=== PATIENT | male | born 1960 | race Caucasian/White ===

== ENCOUNTER 2024-10-29 15:10 | Outpatient (AMB) | payer SELFPAY ==
--- OUTSIDE RECORDS SUMMARY | 2024-10-29 20:34 | XMS_ITS | Clinical Summary ---
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 ancestry, with an estimated carrier frequency of 10%. HH is caused by pathogenic variants in the HFE gene. Most individuals with HH (60-90%) are homozygous for the C282Y pathogenic variant. A smaller percentage of affected individuals are either compound heterozygous for the C282Y and H63D pathogenic variants (3%-8%), or homozygous for the H63D pathogenic variant (approximately 1%). METHODOLOGY: This assay detects two pathogenic variants in the HFE gene, C282Y (NM 910383.2: c.845G>A, p.Qdm554Byg) and H63D (NM 586590.2: c.187C>G, p.Znh61Mke), that are commonly associated with HH. These variants are detected by multiplex-polymerase chain reaction (PCR) amplification, followed by restriction enzyme digestion and capillary electrophoresis. LIMITATIONS: This assay does not detect other pathogenic variants in the HFE gene that may be associated with HH. Although rare, false positive or false negative results may occur. All results should be interpreted in the context of clinical findings, relevant history, and other laboratory data. Health care providers, please contact your local [facility] genetic counselor or call [phone] ( ) for assistance with the interpretation of these results. This test was developed and its analytical performance characteristics have been determined by [facility]. It has not been cleared or approved by FDA. This assay has been validated pursuant to the CLIA regulations and is used for clinical purposes. For more information, please refer to http://education.[employer]/faq/hemochromatosis. (This link is being provided for informational/educational purposes only.) A portion of the testing was performed at [facility]. Reviewed and signed by Laboratory results and submitted clinical information reviewed by Janis Kirby, PhD, [facility], Signed on 10/19/2024 at 16:50 Test Performed at: [facility] [address] [address] Keanu Michael MD, PhD, [facility] Blood Venous blood specimen / Unknown Venipuncture / Unknown 10/03/2024 7:41 AM EDT 10/03/2024 8:20 AM EDT Getachew Sequeira MD LAB MOLECULAR DIAGNOSTICS OR DERABLES Final Result [facility] [address] [place] [address] * Iron and TIBC (10/03/2024 7:41 AM EDT) Iron 85 50 - 160 mcg/dL LAB CHEMISTRY METHOD 10/03/2024 8:59 AM EDT [facility] TIBC 368 250 - 450 mcg/dL LAB CHEMISTRY METHOD 10/03/2024 8:59 AM EDT [facility] Iron Saturation 23 20 - 50 % LAB CHEMISTRY METHOD 10/03/2024 8:59 AM EDT [facility] Blood Venous blood specimen / Unknown Venipuncture / Unknown 10/03/2024 7:41 AM EDT 10/03/2024 8:20 AM EDT us Getachew Sequeira MD LAB BLOOD ORDERABLES Final R esult [facility] [address] [place] [address], [place] [phone] * [id number] (10/03/2024 7:41 AM EDT) A-1 Antitrypsin 128 90 - 200 mg/dL LAB CHEMISTRY METHOD 10/03/2024 8:57 AM EDT [facility] Blood Venous blood specimen / Unknown Venipuncture / Unknown 10/03/2024 7:41 AM EDT 10/03/2024 8:20 AM EDT us Getachew Sequeira MD LAB BLOOD ORDERABLES Final R esult Performing Organization Address [facility]/ZIP Co de Phone Number [facility] [address] [place] [address], [place] [phone] * Ceruloplasmin (10/03/2024 7:41 AM EDT) Ceruloplasmin 31 20 - 60 mg/dL 10/05/2024 5:46 AM EDT [facility] Comment: Test performed at [facility], [address], [place] [address] Lesly Perez MD, PhD - Grounds/Maintenance Specialist Blood Venous blood specimen / Unknown Venipuncture / Unknown 10/03/2024 7:41 AM EDT 10/03/2024 8:20 AM EDT us Getachew Sequeira MD LAB BLOOD ORDERABLES Final R esult [facility] [address] [place] [address] * (ABNORMAL) Hepatic function panel (10/03/2024 7:41 AM EDT) Total Protein 6.8 6.0 - 8.0 g/dL LAB CHEMISTRY METHOD 10/03/2024 8:59 AM EDT [facility] Albumin 4.1 3.2 - 5.0 g/dL LAB CHEMISTRY METHOD 10/03/2024 8:59 AM EDT [facility] Total Bilirubin 0.9 0.0 - 1.4 mg/dL LAB CHEMISTRY METHOD 10/03/2024 8:59 AM T [facility] Bilirubin, Direct 0.3 0.0 - 0.3 mg/dL LAB CHEMISTRY METHOD 10/03/2024 8:59 AM EDT [facility] Bilirubin, Indirect 0.6 0.0 - 1.1 mg/dL LAB CHEMISTRY METHOD 10/03/2024 8:59 AM T [facility] ALT (SGPT) 84(H) 10 - 60 unit/L LAB CHEMISTRY METHOD 10/03/2024 8:59 AM [facility] AST (SGOT) 50(H) 10 - 42 unit/L LAB CHEMISTRY METHOD 10/03/2024 8:59 AM T [facility] Alkaline Phosphatase 71 42 - 121 unit/L LAB CHEMISTRY METHOD 10/03/2024 8:59 AM T [facility] Blood Venous blood specimen / Unknown Venipuncture / Unknown 10/03/2024 7:41 AM EDT 10/03/2024 8:20 AM EDT us Getachew Sequeira MD LAB BLOOD ORDERABLES Final R esult [facility] [address] [place] [address], * Tissue exam (08/01/2024 8:23 AM EDT) Final Diagnosis Soft tissue, right hand-release: -FIBROMATOSIS, CONSISTENT WITH DUPUYTREN CONTRACTURE 08/03/2024 8:53 AM EDT [facility] Gross Description A. Hand, Right, dupuytren: Labeled hand R Dupuytren. Received in formalin are three irregular white-yellow fibrous to fatty tissue fragments, ranging from 0.7 cm to 2.1 cm in greatest dimension. The cut surfaces are comprised of dense deleon-white fibrous tissue. Approximately half of each tissue is submitted in one cassette, three pieces. SARANYA 08/03/2024 8:53 AM EDT [facility] Disclaimer Unless otherwise specified, all tissue is 10% NB formalin fixed and paraffin embedded. 08/03/2024 8:53 AM EDT [facility] Tissue Structure of right hand / Unknown 08/01/2024 8:23 AM EDT 08/01/2024 9:55 AM EDT us Kisha Romo MD LAB PATHOLOGY ORDERABLES Terese emmanuel Result [facility]) [facility] [address] [place] [address], * TH AN NERVE BLOCK SUPRACLAVICULAR (CHARGE), TH AN NERVE BLOCK SUPRACLAVICULAR (NO CHARGE) (08/01/2024 7:20 AM EDT) Bryan Mackey MD - 08/01/2024 7:20 AM EDT Bryan Franklin MD 08/01/2024 7:34 AM Peripheral Block Patient location during procedure: holding area Start time: 08/01/2024 7:20 AM End time: 08/01/2024 7:30 AM Reason for block: at surgeon's request Staffing Performed: anesthesiologist Anesthesiologist: Bryan Franklin MD Preanesthetic Checklist Completed: patient identified, IV checked, site marked, risks and benefits discussed, surgical consent, monitors and equipment checked, pre-op evaluation and timeout performed Peripheral Block Patient position: sitting Prep: ChloraPrep Patient monitoring: heart rate, athletic monitor and continuous pulse ox Block type: supraclavicular Laterality: right Injection technique: single-shot Guidance: ultrasound guided Needle Needle type: short-bevel Needle gauge: 20 G Needle length: 9 cm Needle localization: ultrasound guidance Medications Administered bupivacaine PF (MARCAINE) injection 0.5% - epidural 30 mL - 08/01/2024 7:27:00 AM dexamethasone (PF) (DECADRON) injection 10 mg/mL - perineural 10 mg - 08/01/2024 7:27:00 AM fentaNYL (SUBLIMAZE) injection 50 mcg/mL - intravenous 100 mcg - 08/01/2024 7:20:00 AM midazolam (VERSED) injection 1 mg/mL - intravenous 3 mg - 08/01/2024 7:20:00 AM Assessment Injection assessment: negative aspiration for heme, no paresthesia on injection, incremental injection with negative aspiration q 5ml and local visualized surrounding nerve on ultrasound Paresthesia pain: none Heart rate change: no Slow fractionated injection: no us Bryan Franklin MD ANESTHESIA ORDERABLES Final Re sult * (ABNORMAL) POCT Glucose, blood (08/01/2024 6:21 AM EDT) [facility] Glucose POCT 172(H) 70 - 100 mg/dL 08/01/2024 6:22 AM EDT [facility] Blood Capillary blood specimen / Unknown 08/01/2024 6:21 AM EDT 08/01/2024 6:23 AM EDT Kisha Romo MD LAB POINT OF CARE TE ST DOCKED DEVICE UNSOLICITED RESULTS Final Result [facility] ([facility]) [facility] [address] [place] [address], [place] [phone] from Last 3 Months Insurance [employer] Advance Directives * Full Code - Default (Latest Code Status on File) Date Activated Date Inactivated Comments 06/21/2024 11:33 AM 06/21/2024 4:16 PM This is order is used when code status has not been discussed with the patient, or code status is otherwise unknown/unconfirmed To update the patient's code status, place a code status order. Do not modify or discontinue any currently active code status orders. * Full Code - Default Date Activated Date Inactivated Comments 06/21/2024 11:33 AM 06/21/2024 11:33 AM This is orde r is used when code status has not been discussed with the patient, or code status is otherwise unknown/unconfirmed To update the patient's code status, place a code status order. Do not modify or discontinue any currently active code status orders. * Full Code - Default Date Activated Date Inactivated Comments 06/21/2024 8:52 AM 06/21/2024 11:33 AM This is order is used when code status has not been discussed with the patient, or code status is otherwise unknown/unconfirmed To update the patient's code status, place a code status order. Do not modify or discontinue any currently active code status orders. Care Teams Circle Edger Relationship Specialty Start Date End Date Getachew Sequeira MD [address] [place] [id number] PCP - General Internal Medicine 04/24/24
--- OUTSIDE RECORDS SUMMARY | 2024-10-29 20:34 | XMS_ITS | Clinical Summary ---
Author Organization [facility] Address [address] [facility] [address] [place] [address] Phone Care Team Providers Care Business Services Director Name Role Phone Getachew Sequeira MD Primary Care Provider + [phone] Allergies No known active allergies Medications metFORMIN (FORTAMET) 500 MG 24 hr tablet Take 1,000 mg by mouth in the morning and 1,000 mg in the evening. Do not crush, chew, or split.. Active lisinopril-hydro CHLOROthiazide (PRINZIDE,ZESTOR ETIC) 20-25 MG per tablet Take 1 tablet by mouth 1 (one) time each day Active meloxicam (MOBIC) 15 MG tablet Take 15 mg by mouth 1 (one) time each day Active Dapagliflozin Propanediol (Farxiga) 5 MG tablet Take 5 mg by mouth 1 (one) time each day in the morning Active atorvastatin (LIPITOR) 80 MG tablet Take 80 mg by mouth 1 (one) time each day Active PARoxetine (PAXIL) 30 MG tablet Take 30 mg by mouth 1 (one) time each day in the morning Active SITagliptin (JANUVIA) 25 MG tablet Take 25 mg by mouth 1 (one) time each day Active amLODIPine (NORVASC) 10 MG tablet Take 10 mg by mouth 1 (one) time each day Active aspirin (ST GRETTA) 81 MG EC tablet Take 81 mg by mouth 1 (one) time each day Active Calcium Carbonate-Vit D-Min (CALCIUM 1200 PO) Take 1,200 Units by mouth 1 (one) time each day Active Cholecalciferol (Vitamin D-3) 125 MCG (5000 UT) tablet Take 1 tablet by mouth 1 (one) time each day Active Active Problems Problem Noted Date Diagnosed Date Proteinuria, not otherwise specified 05/05/2023 Diabetes mellitus, not otherwise specified 05/04 Hypertension 05/05/2023 Personal history of prostate cancer 05/05/2023 Family History Relation Status Comments Father Alive Mother Alive Social History Tobacco Use Types Packs/Day Years Used Date Smoking Tobacco: Never Tobacco Cessation:Counseling Given: Not Answered Alcohol Use Standard Drinks/Week Comments Yes 0 (1 standard drink = 0.6 oz pur e alcohol) occasionally Sex and Gender Information Value Date Recorded Sex Assigned at Not on file Legal Sex Male 1:51 PM EST Gender Identity Not on file Sexual Orientation Not on file Last Filed Vital Signs Vital Sign Reading Time Taken Comments Blood Pressure 119/87 05/01/2024 7:56 AM EDT Pulse 76 05/01/2024 7:56 AM EDT Temperature - - Respiratory Rate - - Oxygen Saturation 96% 05/01/2024 7:56 AM EDT Inhaled Oxygen Concentration - - Weight 81.3 kg (179 lb 3.2 oz) 05/01/2024 7:56 A M EDT Height 167.6 cm (5' 6 ) 05/01/2024 7:56 AM EDT Body Mass Index 28.92 05/01/2024 7:56 AM EDT Plan of Treatment Upcoming Encounters Date Type Department Care Team (Late st Contact Info) Description 05/01/2025 8:00 AM EDT Office Visit [facility] [address] [address] Cruz Dilalo MD [address] [address] Health Maintenance Due Date Last Done Comments Pneumococcal Vaccine: 50+ Ye ars (1 of 2 - PCV) 08/17/1978 Colorectal Cancer Screening: Annual FOBT 08/17/2008 Colorectal Cancer Screening: Colonoscopy 08/17/2008 Colorectal Cancer Screening: Sigmoidoscopy 08/17/2008 Diabetes: Ophthalmology Exam 05/05/2023 Diabetes: Pedal Pulse Checked 05/05/2023 Diabetes: Sensory Foot Exam 05/05/2023 Diabetes: Visual Foot Exam 05/05/2023 Diabetes: Hemoglobin A1C 05/31/2024 03/02/2024 Influenza Vaccine (#1) 2024 Hepatitis B Vaccine Aged Out No longe r eligible based on patient's age to complete this topic Insurance [employer] Commercial [employer] Commercial Care Teams Business Services Director Relationship Specialty Start Date End Date Getachew Sequeira MD [address] [place] [address] PCP - General Internal Medicine 05/05/23
--- OUTSIDE RECORDS SUMMARY | 2024-10-29 20:34 | XMS_ITS ---
Author Name [facility] Organization Unknown Encounters Encounter Type Encounter Reason Primary Diagnosis Location Date Ambulatory MODIFY Age-related nucl ear cataract Left eye [facility] 10/23/2024 Care Team Organization Name Specialty Phone Email Start Date End Da te [facility] 09/26/2024 [facility] NULL Primary Care 12/22/2021 10/03/2023
== END 2024-10-29 15:11 | disposition home or self-care (01) ==
LOC: HO.HMGAL 15:10
PROVIDERS: PCP Internal Medicine; Visit Provider Registered Nurse Emergency
DX: J30.89 Other allergic rhinitis (principal)
CPT/HCPCS: 95117; 95165

== ENCOUNTER 2024-11-28 15:34 | Outpatient (AMB) | payer OTHER, SELFPAY ==
--- OUTSIDE RECORDS SUMMARY | 2024-07-18 06:23 | XMS_ITS ---
Author Organization [facility] Address [address], [place] [id number] Care Team Providers Care Medical Records Administrator Name Role Phone MANUEL CWOAN Primary Care Provider [phone] Encounters Encounter Location Date Provider Diagnosis [address] [address] 07/18/2024 MANUEL COWAN PLAN OF TREATMENT Next Appt Details Provider Name:MANUEL MEHTA, 02/19/2025 03:00:00 PM, [address] [place], [address],
--- OUTSIDE RECORDS SUMMARY | 2024-08-15 11:30 | XMS_ITS ---
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 Name Role Phone MANUEL COWAN Primary Care Provider ALLERGIES No Known Allergies REASON FOR VISIT 42 6mo F/U MEDICATIONS Medication SIG (Take, Route, Frequency, Duration) Notes Start Date End Date Status Farxiga 5 MG TAKE 1 TABLET BY IESHA TH ONCE DAILY for 90 Active metFORMIN HCl ER 500 MG TAKE DIRECTED 2 TABLETS BY MOUTH IN THE MORNING AND 2 TABLETS IN THE EVENING for 90 Active Lisinopril-hydroCHLOROthiaz pavel 20-25 MG TAKE 1 TABLET BY MOUTH ONCE DAILY for 90 Active Lisinopril 20 MG TAKE 1 TABLET BY IESHA TH ONCE DAILY Orally once a day for 90 days Active Meloxicam 15 MG 1 tablet Orally Once a day for 30 day(s) Active Atorvastatin Calcium 80 MG 1 tablet Oral ly Once a day for 90 days 09/22/2022 Active PARoxetine HCl 30 MG 1 tablet in the mor cristhian Orally Once a day for 90 days 09/22/2022 Active amLODIPine Besylate 10 MG TAKE 1 TABLET BY MOUTH ONCE DAILY for 90 Active Januvia 100 MG TAKE 1 TABLET BY IESHA TH DAILY for 90 Active SOCIAL HISTORY Tobacco Use: Social History Observation Description Date Details (start date - stop date) Never Smoker NA - NA Sex Assigned At : Social History Observation Description Sex Assigned At Unknown Smoking Question Answer Notes Are you a: never smoker VITAL SIGNS Height 68 in 08/15/2024 Weight 187 lbs 08/15/2024 Blood pressure systolic 132 mm Hg 08/16/19 25 Blood pressure diastolic 91 mm Hg 025 BMI 28.43 kg/m2 08/15/2024 Encounters Encounter Location Date Provider Diagnosis [facility] [address] [place] [address] 08/15/2024 MANUEL COWAN Essential (primary) hypertension I10 ; Type 2 diabetes mellitus without complications E11.9 ; Disorder of lipoprotein metabolism, unspecified E78.9 ; Chronic fatigue, unspecified R53.82 ; History of prostate cancer Z85.46 ; Mixed anxiety and depressive disorder F41.8 and Transaminitis R74.01 ASSESSMENTS Encounter Date Diagnosis Assessment Notes Treatment Notes Treatment Clinical Notes Section Notes 08/15/2024 Essential (primary) hypertension (ICD-10 - I10) Blood pressure stable well-controlled no side effects. Check labs 9 salt diet follow-up in 6 months 08/15/2024 Type 2 diabetes mellitus without complications (ICD-10 - E11.9) Ophthalmology q. year. No polyuria polydipsia baby aspirin daily. Check A1c goal less than 7.5. Continue statin and CHRISTI inhibitor 08/15/2024 Disorder of lipoprotein metabolism, unspecified (ICD-10 - E78.9) Continue statin therapy check lipid profile LDL goal less than 100 total cholesterol less than 200 recommend Mediterranean low-fat diet 08/15/2024 Chronic fatigue, unspecified (ICD-10 - R53.82) Stable doing well review of systems physical exam unchanged check routine labs 08/15/2024 History of prostate cancer (ICD-10 - Z85.46) Stable. Check PSA continue active surveillance follow-up urology no symptoms at the present time 08/15/2024 Mixed anxiety and depressive disorder (ICD-10 - F41.8) Stable doing well 08/15/2024 Transaminitis (ICD-10 - R74.01) Moderation follow-up LFTs check ceruloplasmin alpha-1 antitrypsin and hereditary hemochromatosis gene PLAN OF TREATMENT Treatment Notes Assessment Notes Essential (primary) hypertension Blood p ressure stable well-controlled no side effects. Check labs 9 salt diet follow-up in 6 months Type 2 diabetes mellitus wit hout complications Ophthalmology q. year. No polyuria polydipsia baby aspirin daily. Check A1c goal less than 7.5. Continue statin and CHRISTI inhibitor Disorder of lipoprotein meta bolism, unspecified Continue statin therapy check lipid prof ile LDL goal less than 100 total cholesterol less than 200 recommend Mediterranean low-fat diet Chronic fatigue, unspecified Stable doin g well review of systems physical exam unchanged check routine labs History of prostate cancer Stable. Check PSA continue active surveillance follow-up urology no symptoms at the present time Mixed anxiety and depressive disorder St able doing well Transaminitis Moderation follow-up LFTs check ceruloplasmin alpha-1 antitrypsin and hereditary hemochromatosis gene Future Test Test Name Order Date Iron and [id number] 08/08/2024 Hemoglobin [id number] 08/08/2024 Ceruloplasmin-[id number] 08/08/2024 Gamid-7-Ygebbkacpya, Serum-[id number] 2024 CBC, Platelet, w/o Differential-[id number] 0 08/08/2024 Lipid Panel-[id number] 08/08/2024 Hepatic Function Panel [id number] 2024 Hered.Hemochromatosis, DNA-[id number] 2024 BMP8+eGFR-[id number] 08/08/2024 Next Appt Details Follow Up: Follow-up 6 month s labs pending, Reason: Provider Name:MANUEL MEHTA, 02/19/2025 03:00:00 PM, [address] [place] [address], [phone], Progress Notes * Examination Category Sub-Category Detail Notes Category Not es General Examination HEENT: Conjunctiva pink anicteric mucous membranes moist oropharynx clear TMs clear sinus clear EACs clear fundi negative Pleasant white male appearing stated age no apparent distress Neck: Supple carotids 2+ n o bruits lymphadenopathy no thyromegaly Heart: Regular rate and rhy thm no murmurs rubs or gallops Lungs: clear to auscultatio n Abdomen: soft, non tender/non distended, no rebound tenderness, no guarding or rigidity, no masses palpated, no hepatosplenomegaly, normal active bowel sounds umbilical surgical repair well-healed Extremities: no edema, pulses 2 p robinson bilaterally General Appearance Pleasant white male appearing stated age no apparent distress well-groomed appropriate conversive Skin: normal, no rash, kalyn ign appearing moles Neuro alert and oriented x 3, CN 2-12 intact, motor 5/5 bilaterally proximally and distally in all 4 extremities, no focal abnormality, straight leg raise negative bilaterally History and Physical Notes * HPI (History of Present Illness) Category Sub-Category Detail Notes Category Not es General Hypertension fo llow-up. See review of systems below
--- OUTSIDE RECORDS SUMMARY | 2024-10-16 10:20 | XMS_ITS ---
Author Organization [facility] Address [address], [place] [id number] Care Team Providers Care Fryer Line Helper Name Role Phone MANUEL COWAN Primary Care Provider RELL CAO Unavailable [phone] REASON FOR VISIT PREOP MEDICATIONS Medication SIG (Take, Route, Frequency, Duration) Notes Start Date End Date Status Lisinopril 20 MG TAKE 1 TABLET BY IESHA TH ONCE DAILY Orally once a day for 90 days Active metFORMIN HCl 500 MG 2 tabs Orally bid f or 90 days Active Lisinopril-hydroCHLOROthiaz pavel 20-25 MG TAKE 1 TABLET BY MOUTH ONCE DAILY for 90 Active metFORMIN HCl ER 500 MG TAKE DIRECTED 2 TABLETS BY MOUTH IN THE MORNING AND 2 TABLETS IN THE EVENING for 90 Active Farxiga 5 MG TAKE 1 TABLET BY IESHA TH ONCE DAILY for 90 Active amLODIPine Besylate 10 MG TAKE 1 TABLET BY MOUTH ONCE DAILY for 90 Active Januvia 100 MG TAKE 1 TABLET BY IESHA TH DAILY for 90 Active Meloxicam 15 MG 1 tablet Orally Once a day for 30 day(s) Active PARoxetine HCl 30 MG TAKE 1 TABLET BY MO UTH ONCE DAILY IN THE MORNING for 90 Active Atorvastatin Calcium 80 MG TAKE 1 TABLET BY MOUTH DAILY for 90 Active SOCIAL HISTORY Tobacco Use: Social History Observation Description Date Details (start date - stop date) Never Smoker NA - NA Sex Assigned At : Social History Observation Description Sex Assigned At Unknown Smoking Question Answer Notes Are you a: never smoker PROBLEMS Problem Type ICD Code Onset Dates Problem Status W/U Status Risk SNOMED Code Notes Problem Age-related cataract of both eyes, unspecified age-related cataract type (H25.9) Active confirmed [id number] VITAL SIGNS Height 68 in 10/16/2024 Weight 181 lbs 10/16/2024 Blood pressure systolic 121 mm Hg 10/17/19 25 Blood pressure diastolic 78 mm Hg 025 BMI 27.52 kg/m2 10/16/2024 Encounters Encounter Location Date Provider Diagnosis [facility] [address] [place] [address] 10/16/2024 RELL CAO Preop cardiovascular exam Z01.810 ; Essential (primary) hypertension I10 ; Type 2 diabetes mellitus without complications E11.9 and Age-related cataract of both eyes, unspecified age-related cataract type H25.9 ASSESSMENTS Encounter Date Diagnosis Assessment Notes Treatment Notes Treatment Clinical Notes Section Notes 10/16/2024 Preop cardiovascular exam (ICD-10 - Z01.810) Do not take NSAIDs (ibuprofen, naproxen, and similar meds) 1 week prior to surgery. You may take your lisinopril and amlodipine on the morning of surgery with a small amount of water and take rest of medicines after surgery, unless instructed differently by surgeon. Labs ordered. EKG: Sinus rhythm at a rate of 89 without any acute changes or findings. Patient is cleared as of today for this low risk surgery. 10/16/2024 Essential (primary) hypertension (ICD-10 - I10) Continue amlodipine 10 mg daily and lisinopril 20 mg once a day and lisinopril/hydroc hlorothiazide 20/25 mg once a day. Current blood pressures under good control. Follow-up with Dr. Cowan as scheduled. 10/16/2024 Type 2 diabetes mellitus without complications (ICD-10 - E11.9) Continue with Januvia 100 mg daily, Farxiga 5 mg once a day, metformin ER 500 mg 2 tablets twice a day. Currently stable. Follow-up with Dr. Cowan as scheduled. 10/16/2024 Age-related cataract of both eyes, unspecified age-related cataract type (ICD-10 - H25.9) Surgery as scheduled. Follow-up with ophthalmology as scheduled. PLAN OF TREATMENT Treatment Notes Assessment Notes Preop cardiovascular exam Do not take NSAIDs (ibuprofen, naproxen, and similar meds) 1 week prior to surgery. You may take your lisinopril and amlodipine on the morning of surgery with a small amount of water and take rest of medicines after surgery, unless instructed differently by surgeon. Labs ordered. EKG: Sinus rhythm at a rate of 89 without any acute changes or findings. Patient is cleared as of today for this low risk surgery. Essential (primary) hypertension Continu e amlodipine 10 mg daily and lisinopril 20 mg once a day and lisinopril/hydrochlorothiazide 20/25 mg once a day. Current blood pressures under good control. Follow-up with Dr. Cowan as scheduled. Type 2 diabetes mellitus wit hout complications Continue with Januvia 100 mg daily, Farxiga 5 mg once a day, metformin ER 500 mg 2 tablets twice a day. Currently stable. Follow-up with Dr. Cowan as scheduled. Age-related cataract of both eyes, unspecified age-related cataract type Surgery as scheduled. Follow-up with ophthalmology as scheduled. Future Test Test Name Order Date CBC W/ AUTOMATED DIFF 10/16/2024 BASIC METABOLIC PANEL 10/16/2024 Next Appt Details Follow Up: Labs ordered to b e done through [employer] [employer]. EKG done. Patient cleared for surgery as of today. Follow-up with Dr. Cowan as scheduled in February., Reason: Provider Name:MANUEL Ramone MEHTA, 02/19/2025 03:00:00 PM, [address] [place] [address], [phone], Progress Notes * Examination Category Sub-Category Detail Notes Category Not es General Examination HEENT: NC/AT, EOMI,PERRL Neck: supple, no lymphaden opathy, no thyroid abnormality, no carotid bruit, JVP flat Heart: RRR, no murmurs, cli cks or rubs, no gallops, normal S1S2 Lungs: clear to auscultatio n Abdomen: soft, non tender/non distended, no masses palpated, no hepatosplenomegaly, normal active bowel sounds Extremities: no clubbing , cyanos is, or edema General Appearance NAD, pleasant Skin: normal, no rash Neuro CN 2-12 intact, rojas r 5/5 bilaterally proximally and distally in all 4 extremities Oral cavity: pharnyx and tonsils normal History and Physical Notes * HPI (History of Present Illness) Category Sub-Category Detail Notes Category Not es General Pre-operative Evaluation Surgeon: Dr. Servando Paulino for cataract surgery Date of surgery: October 23, 2024 for left eye with right eye to follow-up on November 13, 2024 Proposed anesthesia: Topical/MAC Patient of Dr. Cowan seen today for preop prior to cataract surgery. Patient with history of hypertension, diabetes, hyperlipidemia, anxiety and chronic back pain. Current medications include meloxicam 15 mg once a day, metformin 500 mg 2 tablets twice a day, Farxiga 5 mg once a day, Januvia 100 mg once a day, amlodipine 10 mg once a day, lisinopril 20 mg once a day and lisinopril/hydrochlor othiazide 20/25 once a day and atorvastatin 80 mg daily. Also on paroxetine 30 mg once a day. Patient works an active job as well as able to do activities around the house and yard work without difficulty. Able to go up 2 flights of stairs and walk over 100 yards without issues with chest pain or shortness of breath. METs greater than or equal to 4. Here in the office has no acute complaints and denies any headaches, chest pain, shortness of breath, abdominal pain, weakness, dizziness, numbness, tingling, blood per rectum or black or tarry stools. No urinary issues.
--- OUTSIDE RECORDS SUMMARY | 2024-10-18 07:36 | XMS_ITS ---
Author Organization [facility] Address [address], [place] [id number] Care Team Providers Care Bilingual Counter Sales Retail Name Role Phone MANUEL COWAN Primary Care Provider [phone] REASON FOR VISIT fax 10/16/24 pre op w/ labs, EKG Encounters Encounter Location Date Provider Diagnosis [facility] [address] [place] [address] 10/18/2024 MANUEL COWAN PLAN OF TREATMENT Next Appt Details Provider Name:MANUEL MEHTA, 02/19/2025 03:00:00 PM, [address] [place], [address],
--- OUTSIDE RECORDS SUMMARY | 2024-11-02 11:51 | XMS_ITS ---
Author Organization [facility] Address [address] [place], [place] [id number] Care Team Providers Care Radio Program Director Name Role Phone MANUEL COWAN Primary Care Provider REASON FOR VISIT (H) Diana Form Encounters Encounter Location Date Provider Diagnosis [address] [address] 11/02/2024 MANUEL COWAN PLAN OF TREATMENT Next Appt Details Provider Name:MANUEL MEHTA, 02/19/2025 03:00:00 PM, [address] [place], [address],
--- OUTSIDE RECORDS SUMMARY | 2024-11-28 19:03 | XMS_ITS | Clinical Summary ---
Author Organization LL [address] [place] [address] [place] [phone] Phone Care Team Providers Care Automatic Lathe Operator Name Role Phone Getachew Sequeira MD Primary Care Provider + [phone] Allergies No known active allergies Medications PARoxetine [...] MOUTH 1 HOUR PRIOR TO DENTAL APPT 4 Active aspirin 81 mg EC tablet Take 1 tablet (81 mg total) by mouth 1 (one) time each day. Active lisinopriL (PRINIVIL,ZESTR IL) 20 mg tablet Take 1 tablet (20 mg total) by mouth 1 (one) time each day. 5 Active Januvia 100 mg tablet Take 1 tablet (100 mg total) by mouth 1 (one) time each day. 5 Active acetaminophen (TYLENOL) 500 mg tablet Take 1 tablet (500 mg total) by mouth every 6 (six) hours if needed for moderate pain. Do not exceed 3 grams of Tylenol per day. 30 tablet 5 Active Additional Information Patient not taking.Reported on 10/31/2024 ibuprofen (ADVIL,MOTRIN) 600 mg tablet Take 1 tablet (600 mg total) by mouth 3 (three) times a day with meals. 30 each 5 Active Additional Information Patient not taking.Reported on 10/31/2024 oxyCODONE (ROXICODONE) 5 mg immediate release tablet Take 1 tablet (5 mg total) by mouth every 6 (six) hours if needed for severe pain. Max Daily Amount: 20 mg 6 tablet 5 Active Additional Information Patient not taking.Reported on 10/31/2024 Farxiga 5 mg tablet 5 Active ketorolac (ACULAR) 0.5 % ophthalmic solution PLEASE SEE ATTACHED FOR DETAILED DIRECTIONS 5 Active moxifloxacin (VIGAMOX) 0.5 % ophthalmic solution 5 Active prednisoLONE acetate (PRED FORTE) 1 % ophthalmic suspension PLEASE SEE ATTACHED FOR DETAILED DIRECTIONS 5 Active tobramycin-dexA METHasone (TOBRADEX) ophthalmic suspension INSTILL 1 DROP INTO THE RIGHT EYE 4 TIMES DAILY FOR 5 DAYS 5 Active Active Problems Problem Noted Date Diagnosed Date Surgery follow-up 10/04/2024 Right hand pain 08/03/2024 Radiculopathy, lumbar region 06/14/2024 Assessment & Plan (10/31/2024 4:14 PM EDT): Mr. Dsouza is 4 months status post L4-5 minimally invasive microdiscectomy. He did well after that procedure until about 10 days ago developed sudden onset of pain in the left buttock, hip, and anterolateral thigh. Wide intense but better over the past day or 2. He denies right leg symptoms or problems of bowel or bladder control. On exam, he is neurologically intact and has good strength in all major muscle groups. His incision is well-healed. Mr. Dsouza is 4 months status post left L4-5 MIS discectomy and describes recurrent pain 10 days ago that is better over the past 2 days. I explained to Mr. Dsouza that given that his pain profile is improving and he is neurologically intact and that this is only been going on for 10 days, I do not think it would be necessary to get an MRI at this time. He agreed. He will keep an eye on things and if they are going in the wrong direction he will call to let me know so that we can consider a new MRI at that time. Dupuytren's contracture of hand 06/11/2024 Diabetes mellitus, type 2 (CMS/HCC V24, CMS/HCC V28) 06/08/2024 HTN (hypertension) 06/08/2024 Umbilical hernia without obstruction and without gangrene 06/01/2024 Lumbar disc herniation with radiculopathy Assessment & Plan (08/14/2024 3:40 PM EDT): Mr. Dsouza has seen further improvements since his last [...] left knee. He is not requiring any wnws-qsi-uwtmvet pain meds or oxycodone. He denies any fevers, wound drainage, sweats chills. Mr. Dsouza has improvement in his left leg radiculopathy [...] reviewed the MRI in detail with Mr. Dsouza explaining the small underlying disc bulge and [...] Encounters Date Type Department Care Team Description 10/31/2024 2:00 PM EDT Office Visit [facility] [address] [place] [address] Abdifatah May PA Radiculopathy, lumbar region (Primary Dx) 10/02/2024 2:45 PM EDT Office Visit Orthopedic Surgery - [address] [place] [address] Kisha Romo MD Surgery follow-up (Primary Dx); Dupuytren's contracture of hand from Last 3 Months Immunizations Immunization Administration Dates Next Due Hepatitis B (Bgikrft-P-Owitl , Recombivax HB-Adult) 19yo and older 10/09/2013,05/08/2013,04/10/2013 [...] Safety Answer Date Record ed Physical Abuse Unrecognized value 08/01/2024 Verbal Abuse Unrecognized value 08/01/2024 Sex and Gender Information Value Date [...] EDT Inhaled Oxygen Concentration - - Weight 356 kg (784 lb) 10/31/2024 1:56 PM EDT Height 170.2 cm (5' 7 ) 10/31/2024 1:56 PM EDT Body Mass Index 122.79 10/31/2024 1:56 PM EDT Plan of Treatment Health Maintenance Due Date Last Done Comments Diabetes: Annual Foot Exam 08/17/1969 Diabetes: Annual Retina Eye Exam 08/17/1969 RSV Immunization Adult Patients (1 - Risk 50-74 years 1-dose series) 08/17/2009 Hepatitis C Screening 03/16/2019 Social Influencers of [...] (2 - Td or Tdap) 03/02/2033 03/02/2023 Hepatitis B Vaccines Completed 10/09/2013, 05/08/2013, 04/10/2013 [...] RESUME YARDWORK Medical Devices Implanted Type Area Wind Energy Project Manager Device Identifier Shelf Expiration Date Model / Serial / Lot Joints Knee Joints Knee Right: Knee Powder Surgifoam Absorb Gel - Sna - [id number] Implanted:Qty : 1 on 06/21/2024 by Kendra Limon MD at [facility] [employer] Left: Back [employer] 03/29/20261977 / NA / [id number] Mesh Ventralex St 1.7in Sm Whittaker W/Strap - Sna - [id number] Implanted:Qty : 1 on 06/08/2024 by Galina Isbell MD at [facility] Surgical Mesh Sling Implants N/A: Umbilical CR BARD - [employer] DIV [id number] 10/11/2025 [id number] / NA / [id number] Procedures Procedure Name Priority Date/Time Associated Diagnosis [...] of transaminase or lactic acid dehydrogenase (LDH) [id number] Routine 10/03/2024 7 :41 AM EDT Essential hypertension, malignant Diabetes mellitus (CMS/HCC V24, CMS/HCC V28) Disorder of lipoprotein and lipid metabolism Chronic fatigue Personal history of malignant neoplasm of prostate Depression with anxiety Nonspecific elevation of levels of transaminase or lactic acid dehydrogenase (LDH) HEPATIC FUNCTION PANEL Routine 7:41 AM EDT Essential hypertension, malignant Diabetes [...] of transaminase or lactic acid dehydrogenase (LDH) from Last 3 Months Results * (ABNORMAL) CBC auto differential (10/16/2024 3:28 PM EDT) Only the most recent of2 resultswithin the time period is included. WBC 8.4 4.8 - 10.8 K/mcL LAB [facility] RBC 4.80 4.50 - 5.50 M/mcL LAB HEMETOLOGY METHOD [facility]24 [facility] Hemoglobin 14.7 13.5 - 17.5 g/dL LAB HEMETOLOGY METHOD 10/16[facility]2024 5[facility] Hematocrit 44.0 42.0 - 54.0 % LAB HEMETOLOGY METHOD 10/16/2024 5[facility] MCV 90.9 79.0 - 98.0 FL LAB HEMETOLOGY METHOD 10/16[facility]2024 5[facility] MCH 30.4 27.0 - 32.0 pcg LAB HEMETOLOGY METHOD 10/16[facility]2024 5[facility] MCHC 33.4 32.0 - 37.0 g/dL LAB HEMETOLOGY METHOD 10/16[facility]2024 5[facility] RDW 13.2 11.0 - 15.0 % LAB HEMETOLOGY METHOD 10/16/2024 5[facility] Platelets 312 130 - 400 K/mcL LAB HEMETOLOGY METHOD 10/16/2024 5:06 PM [facility] MPV 9.2 7.0 - 11.0 FL LAB HEMETOLOGY METHOD 10/16/2024 5:06 PM [facility] NRBC 0.0 <1.0 % LAB HEMETOLOGY METHOD 10/16/2024 5:06 PM [facility] NRBC Absolute 0.00 <0.10 K/mcL LAB HEMETOLOGY METHOD 10/16/2024 5:06 PM [facility] Neutrophils Relative 54.9 % LAB HEMETOLOGY METHOD 10/16/2024 5:06 PM [facility] Lymphocytes Relative 26.5 % LAB HEMETOLOGY METHOD 10/16/2024 5:06 PM [facility] Monocytes Relative 13.0 % LAB HEMETOLOGY METHOD 10/16/2024 5:06 PM [facility] Eosinophils Relative 4.6 % LAB HEMETOLOGY METHOD 10/16/2024 5:06 PM [facility] Basophils Relative 0.6 % LAB HEMETOLOGY METHOD 10/16/2024 5:06 PM [facility] Immature Granulocytes Relative 0.4 % LAB HEMETOLOGY METHOD 10/16/2024 5:06 PM [facility] Neutrophils Absolute 4.61 1.50 - 7.00 K/mcL LAB HEMETOLOGY METHOD 10/16/2024 5:06 PM [facility] Lymphocytes Absolute 2.22 1.00 - 5.00 K/mcL LAB HEMETOLOGY METHOD 10/16/2024 5:06 PM [facility] Monocytes Absolute 1.09(H) 0.20 - 1.00 K/mcL LAB HEMETOLOGY METHOD 10/16/2024 5:06 PM [facility] Eosinophils Absolute 0.39 0.00 - 0.50 K/mcL LAB HEMETOLOGY METHOD 10/16/2024 5:06 PM [facility] Basophils Absolute 0.05 0.00 - 0.20 K/mcL LAB HEMETOLOGY METHOD 10/16/2024 5:06 PM EDT [facility] Immature Granulocytes Absolute 0.03 0.00 - 0.03 K/[facility] LAB HEMETOLOGY METHOD 10/16/2024 5:06 PM EDT [facility] Blood Venous blood specimen / Unknown Venipuncture / Unknown 10/16/2024 3:28 PM EDT 10/16/2024 4:24 PM EDT Tom ROBINS LAB BLOOD ORDERABLES Final Res ult [facility] [address] [place] [address], * (ABNORMAL) Hemoglobin A1c (10/16/2024 3:28 PM EDT) Only the most recent of2 resultswithin the time period is included. Pathologist [facility] Hemoglobin A1C 7.7(H) <6.5 % LAB CHEMISTRY METHOD 10/16/2024 10:21 PM EDT [facility] Mean Bld Glu Estim. 174 mg/dL LAB CHEMISTRY METHOD 10/16/2024 10:21 PM EDT [facility] Blood Venous blood specimen / Unknown Venipuncture / Unknown 10/16/2024 3:28 PM EDT 10/16/2024 4:24 PM EDT Tom ROBINS LAB BLOOD ORDERABLES Final Res ult [facility] [address] [place] [address], [place] [phone] * (ABNORMAL) Basic metabolic panel (10/16/2024 3:28 PM EDT) Only the most recent of2 resultswithin the time period is included. Sodium 137 133 - 145 mmol/L LAB CHEMISTRY METHOD 10/16/2024 8:07 PM [facility] Potassium 3.9 3.5 - 5.5 mmol/L LAB CHEMISTRY METHOD 10/16/2024 8:07 PM [facility] Chloride 99 96 - 110 mmol/L LAB CHEMISTRY METHOD 10/16/2024 8:07 PM [facility] CO2 30 21 - 32 mmol/L LAB CHEMISTRY METHOD 10/16/2024 8:07 PM [facility] Anion Gap 8 3 - 11 LAB CHEMISTRY METHOD 10/16/2024 8:07 PM [facility] Glucose 138(H) 70 - 100 mg/dL LAB CHEMISTRY METHOD 10/16/2024 8:07 PM [facility] BUN 20 5 - 25 mg/dL LAB CHEMISTRY METHOD 10/16/2024 8:07 PM [facility] Creatinine 0.96 0.70 - 1.30 mg/dL LAB CHEMISTRY METHOD 10/16/2024 8:07 PM [facility] eGFR 88 >=60 mL/min/1. 73m2 LAB CHEMISTRY METHOD 10/16/2024 8:07 PM [facility] Comment:Calculation based on the Chronic Kidney Disease Epidemiology Collaboration (CKD-EPI) equation refit without adjustment for race. BUN/Creatinine Ratio 20.8 LAB CHEMISTRY METHOD 10/16/2024 8:07 PM [facility] Calcium 10.5 8.5 - 10.5 mg/dL LAB CHEMISTRY METHOD 10/16/2024 8:07 PM [facility] Blood Venous blood specimen / Unknown Venipuncture / Unknown 10/16/2024 3:28 PM EDT 10/16/2024 4:24 PM EDT us Tom ROBINS LAB BLOOD ORDERABLES Final Res ult [facility] [address] [place] [address], [place] [phone] * Lipid panel with reflex to direct LDL (10/03/2024 7:41 AM EDT) Pathologist [facility] Cholesterol 166 0 - 200 mg/dL LAB CHEMISTRY METHOD 10/03/2024 8:58 AM EDT [facility] Triglycerides 81 0 - 150 mg/dL LAB CHEMISTRY METHOD 10/03/2024 8:58 AM EDT [facility] HDL 98 >=40 mg/dL LAB CHEMISTRY METHOD 10/03/2024 8:58 AM EDT [facility] LDL Calculated 52 0 - 100 mg/dL LAB CHEMISTRY METHOD 10/03/2024 8:58 AM EDT [facility] Comment:Estimated LDL Calcul ated using equation: Total cholesterol - HDL cholesterol - (Triglycerides/5) VLDL Cholesterol [place] 16.2 mg/dL LAB CHEMISTRY METHOD 10/03/2024 8:58 AM EDT [facility] Non HDL Chol. (LDL+VLDL) 68 <145 mg/dL LAB CHEMISTRY METHOD 10/03/2024 8:58 AM EDT [facility] Chol/HDL Ratio 1.7 0.0 - 4.4 LAB CHEMISTRY METHOD 10/03/2024 8:58 AM T [facility] Blood Venous blood specimen / Unknown Venipuncture / Unknown 10/03/2024 7:41 AM EDT 10/03/2024 8:20 AM EDT us Getachew Sequeira MD LAB BLOOD ORDERABLES Final R esult [facility] [address] [place] [address], [place] [phone] * Hemochromatosis mutation (10/03/2024 7:41 AM EDT) [facility] Hereditary Hemochromatosis See Below 10/19/2024 10:41 PM EDT [facility] Comment: RESULT: NEGATIVE Interpretation: DNA testing [...] clinical information reviewed by Janis Kirby, PhD, [facility]. DETAILED ASSAY INFORMATION: Hereditary hemochromatosis (HH) is [...] variants in the HFE gene, C282Y (NM 399438.2: c.845G>A, p.Nuk000Gln) and H63D (NM 904810.2: c.187C>G, p.Oyq72Aqi), that are commonly associated with HH. These [...] Health care providers, please contact your local [employer]' genetic counselor or call [phone] ( ) for assistance with the interpretation of these results. This test was developed and its analytical performance characteristics have been determined by [employer] [facility]. It has not been cleared or approved by FDA. This assay has been validated pursuant to the CLIA regulations and is used for clinical purposes. For more information, please refer to http://education.[employer].Zenops/faq/hemochromatosis. (This link is being provided for informational/educational purposes only.) A portion of the testing was performed at [facility]. Reviewed and signed by Laboratory results and submitted clinical information reviewed by Janis Kirby, PhD, [facility], Signed on 10/19/2024 at 16:50 Test Performed at: [employer] [address] [id number] Keanu Michael MD, PhD, [facility] Blood Venous blood specimen / Unknown Venipuncture / Unknown 10/03/2024 7:41 AM EDT 10/03/2024 8:20 AM EDT us Getachew Sequeira MD LAB MOLECULAR DIAGNOSTICS OR DERABLES Final Result [facility] [address] [place] [address] * Iron and TIBC (10/03/2024 7:41 AM EDT) Iron 85 50 - 160 mcg/dL LAB CHEMISTRY METHOD 10/03/2024 8:59 AM EDT [facility] TIBC 368 250 - 450 mcg/dL LAB CHEMISTRY METHOD 10/03/2024 8:59 AM EDT [facility] Iron Saturation 23 20 - 50 % LAB CHEMISTRY METHOD 10/03/2024 8:59 AM EDT [facility] Blood Venous blood specimen / Unknown Venipuncture / Unknown 10/03/2024 7:41 AM EDT 10/03/2024 8:20 AM EDT us Getachew Sequeira MD LAB BLOOD ORDERABLES Final R esult [facility] [address] [place] [address], * [id number] (10/03/2024 7:41 AM EDT) A-1 Antitrypsin 128 90 - 200 mg/dL LAB CHEMISTRY METHOD 10/03/2024 8:57 AM EDT [facility] Blood Venous blood specimen / Unknown Venipuncture / Unknown 10/03/2024 7:41 AM EDT 10/03/2024 8:20 AM EDT us Getachew Sequeira MD LAB BLOOD ORDERABLES Final R esult [facility] [address] [place] [address], [place] [phone] * Ceruloplasmin (10/03/2024 7:41 AM EDT) Ceruloplasmin 31 20 - 60 mg/dL 10/05/2024 5:[address] [facility] Comment: Test performed at [facility], [address] , [place] [address] Lesly Perez MD, PhD - Information Manager Blood Venous blood specimen / Unknown Venipuncture / Unknown 10/03/2024 7:41 AM EDT 10/03/2024 8:20 AM EDT us Getachew Sequeira MD LAB BLOOD ORDERABLES Final R esult [facility] [address] [place] [address] * (ABNORMAL) Hepatic function panel (10/03/2024 7:41 AM EDT) Total Protein 6.8 6.0 - 8.0 g/dL LAB CHEMISTRY METHOD 10/03/2024 8:59 AM EDT [facility] Albumin 4.1 3.2 - 5.0 g/dL LAB CHEMISTRY METHOD 10/03/2024 8:59 AM EDT [facility] Total Bilirubin 0.9 0.0 - 1.4 mg/dL LAB CHEMISTRY METHOD 10/03/2024 8:59 AM EDT [facility] Bilirubin, Direct 0.3 0.0 - 0.3 mg/dL LAB CHEMISTRY METHOD 10/03/2024 8:59 AM EDT [facility] Bilirubin, Indirect 0.6 0.0 - 1.1 mg/dL LAB CHEMISTRY METHOD 10/03/2024 8:59 AM EDT [facility] ALT (SGPT) 84(H) 10 - 60 unit/L LAB CHEMISTRY METHOD 10/03/2024 8:59 AM EDT [facility] AST (SGOT) 50(H) 10 - 42 unit/L LAB CHEMISTRY METHOD 10/03/2024 8:59 AM EDT [facility] Alkaline Phosphatase 71 42 - 121 unit/L LAB CHEMISTRY METHOD 10/03/2024 8:59 AM EDT [facility] Blood Venous blood specimen / Unknown Venipuncture / Unknown 10/03/2024 7:41 AM EDT 10/03/2024 8:20 AM EDT Getachew Sequeira MD LAB BLOOD ORDERABLES Final R esult [facility] [address] [place] [address], from Last 3 Months Insurance [employer] [...] currently active code status orders. Care Teams Automatic Lathe Operator Relationship Specialty Start Date End Date Getachew Sequeira MD [address] [place] [address] PCP - General Internal Medicine 04/24/24
--- OUTSIDE RECORDS SUMMARY | 2024-11-28 19:04 | XMS_ITS | Patient Health Record ---
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 Paulino ophthalmology in [place] patient is a OV in March but he is having 3 weeks of the left eye infection. Concern regarding viral infection Diagnosis 1 Infection of left ey e (H44.002) Referral Organization [facility] Referring Provider First Name MANUEL Referring Provider Last Name CAMRYN Referring Provider Speciality Internal edicine Referred Provider LUNA PAULINO Referred Provider Specialty Ophthalmolog y General Notes Luly FRANCOIS Admin 10:24:26 AM > we are requesting a STAT appt>faxed medical referral and notes to Dr Paulino Referral Priority Stat Reason (2)R hand Dupuytrens Contracture Referral Organization [facility] Referring Provider First Name MANUEL Referring Provider Last Name CAMRYN Referring Provider Speciality Internal edicine General Notes Senthil FRANCOIS Call Center 04/13/2024 09:10:09 AM > Patient requesting [employer] insurance referral to Dr Sopiha Romo for R hand Dupuytren's Contracture. No appointment scheduled until referral received., [address] [facility] [address] [address], [place] [address], P: , P; [phone], F:, Ameena FRANCOIS Call Center 05/01/2024 10:11:57 AM >Pt called for this referral, see message started, see other open referral. Referral Priority Routine Reason (3)dr romo Referral Organization [facility] Abhay garrido Referring Provider First Name MANUEL Referring Provider Last Name CAMRYN Referring Provider Speciality Internal edicine Referred Provider SOPHIA ROMO Referred Provider Specialty Orthopedic S urgery General Notes Anika FRANCOIS [place] 025 09:26:12 AM > Patient requesting [employer] insurance referral to Dr Sophia Romo for R hand Dupuytren's Contracture. No appointment scheduled until referral received., [address], [place] [address], P: , P; [phone], F:, Ameena FRANCOIS Call Center 05/01/2024 10:10:44 AM >Pt called for this referral, see message started., Luly FRANCOIS P Admin 05/01/2024 11:51:01 AM > Faxed medical referral note and most recent labs to [phone] Karen M Call Center 05/03/2024 09:21:41 AM >Pt called, advised above., ALESSANDROLuly P Admin 05/10/2024 04:07:24 PM > per incoming document pt was seen on 05/04/24 Referral Priority Routine Referral Appointment Date 05/04/2024 Reason (2)[facility] for lumbar back pain with sciatic symptoms not responding to present medication question injection Diagnosis 1 Lumbar back pain wit h radiculopathy affecting left lower extremity (M54.16) Referral Organization [facility] Abhay garrido Referring Provider First Name MANUEL Referring Provider Last Name CAMRYN [facility] Referred Organization [facility] Referred Address [address] [place] [address],[place], [id number], General Notes Ameena FRANCOIS Call Ce nter 05/28/2024 11:39:14 AM >Pt asking for doctor to doctor referral, pt there now, PSS, fax [phone], see message started., Luly FRANCOIS P Admin 06/01/2024 02:59:13 PM > no referral required>faxed to [phone]>encounter closed Referral Priority Stat Referral Appointment Date 05/28/[address] [facility] Referral Organization [facility] Referring Provider First Name MANUEL Referring Provider Last Name CAMRYN Referring Provider Speciality Internal M edicine Referred Provider KENDRA CEDENO General Notes Anika FRANCOIS [place] 025 09:20:19 AM > Rubi [facility]/[phone], calling and stated that a fax was faxed to our office for a referral for neurologist Dr. Kendra Cedeno on 06/13/2024. The reason: M51.26 , (F) [phone], Back dated to 06/14/2024, Luly FRANCOIS Admin 06/18/2024 08:43:59 AM > NO REFERRAL REQUIRED>faxed to Dr Cedeno at [phone]>encounter closed Referral Priority Urgent Referral Appointment Date 06/14/2024 MEDICATIONS Medication SIG (Take, Route, Frequency, Duration) Notes Start Date End Date Status Januvia 100 MG TAKE 1 TABLET BY IESHA TH DAILY for 90 Active Lisinopril 20 MG TAKE 1 TABLET BY IESHA TH ONCE DAILY Orally once a day for 90 days Active amLODIPine Besylate 10 MG TAKE 1 TABLET BY MOUTH ONCE DAILY for 90 Active Meloxicam 15 MG 1 tablet Orally Once a day for 30 day(s) Active metFORMIN HCl 500 MG 2 tabs [...] IESHA TH ONCE DAILY for 90 Active PARoxetine HCl 30 MG TAKE 1 TABLET BY MO [facility] ONCE DAILY IN THE MORNING for 90 Active Atorvastatin Calcium 80 MG TAKE 1 TABLET BY MOUTH DAILY for 90 Active IMMUNIZATIONS Vaccine Route Administration Date Status Comme nts Influenza, Flublok IM Intramuscular 02/29/2024 Administere d Influenza, Flucelvax IM Intramuscular 02/03/2023 Administe red SOCIAL HISTORY Tobacco Use: Social History Observation Description Date Details (start date - stop date) Never Smoker NA - NA Sex Assigned At : Social History Observation Description Sex Assigned At Unknown Smoking Question Answer Notes Are you a: never smoker PROBLEMS Problem Type ICD Code Onset Dates Problem Status W/U Status Risk SNOMED Code Notes Problem Essential (primary) hypertension (I10) Active confirmed Essential hypertension (90612208) Problem Type 2 diabetes mellitus without complications (E11.9) Active confirmed Type II diabete s mellitus without complication (398600873) Problem Bilateral primary osteoarthritis of knee (M17.0) Active confirmed 727683689 Problem Chronic fatigue, unspecified (R53.82) Active confirmed Chronic fatigue syndrome (disorder) (65873947) Problem Disorder of lipoprotein metabolism, unspecified (E78.9) Active confirmed Disorder of lipoprotein storage and metabolism (disorder) (045688055) Problem History of prostate cancer (Z85.46) Active confirmed 161175388 Problem Lumbar back pain with radiculopathy affecting left lower extremity (M54.16) Active confirmed 982270590 Problem Age-related cataract of both eyes, unspecified age-related cataract type (H25.9) Active confirmed 77383758 Problem Infection of left eye (H44.002) Active confirmed 29565182692801693 Problem Mixed anxiety and depressive disorder (F41.8) Active confirmed 673183133 VITAL SIGNS Blood pressure diastolic 78 mm Hg 10/16/2024 Height 68 in 10/16/2024 Blood pressure systolic 121 mm Hg 10/16/2024 Weight 181 lbs 10/16/2024 BMI 27.52 kg/m2 10/16/2024 Encounters Encounter Location Date Provider Diagnosis [place] [phone] 02/29/2024 MANUEL COWAN Essential (primary) hypertension I10 ; Type 2 diabetes mellitus without complications E11.9 ; Disorder of lipoprotein metabolism, unspecified E78.9 ; Chronic fatigue, unspecified R53.82 ; History of prostate cancer Z85.46 ; Mixed anxiety and depressive disorder F41.8 ; Bilateral primary osteoarthritis of knee M17.0 and Infection of left eye H44.002 [place] [id number] 02/29/2024 MANUEL COWAN [place] [phone] 02/29/2024 N[place] Encounter for immunization Z23 [address] [address] 02/29/2024 MANUEL COWAN [address] [place] [address] 03/02/2024 MANUEL COWAN [address] [address] 04/13/2024 MANUEL COWAN [address] [address] 04/30/2024 MANUEL COWAN [address] [address] 05/28/2024 MANUEL COWAN Lumbar back pain wit h radiculopathy affecting left lower extremity M54.[address] [address] 05/28/2024 MANUEL COWAN [address] [address] 06/06/2024 MANUEL COWAN [address] [address] 06/15/2024 MANUEL COWAN [address] [address] 07/18/2024 MANUEL COWAN [address] [address] 08/15/2024 MANUEL COWAN Essential (primary) hypertension I10 ; Type 2 diabetes mellitus without complications E11.9 ; Disorder of lipoprotein metabolism, unspecified E78.9 ; Chronic fatigue, unspecified R53.82 ; History of prostate cancer Z85.46 ; Mixed anxiety and depressive disorder F41.8 and Transaminitis R74.[address] [address] 10/16/2024 RELL CAO Preop cardiovascular exam Z01.810 ; Essential (primary) hypertension I10 ; Type 2 diabetes mellitus without complications E11.9 and Age-related cataract of both eyes, unspecified age-related cataract type H25.[address] [address] 10/18/2024 MANUEL COWAN [address] [address] 11/02/2024 MANUEL COWAN ASSESSMENTS Encounter Date Diagnosis Assessment Notes Treatment [...] lisinopril 20 mg once a day and lisinopril/hydroch lorothiazide 20/25 mg once a day. Current blood pressures under good control. Follow-up with Dr. Cowan as scheduled. 05/28/2024 Lumbar back pain with radiculopathy affecting left lower extremity (ICD-10 - M54.16) 02/29/2024 Encounter for immunization (ICD-10 - Z23) VIS sheet provided to patient influenza vaccine administered patient counseled 08/15/2024 Type 2 diabetes mellitus without complications (ICD-10 - E11.9) Ophthalmology q. year. No polyuria polydipsia baby aspirin daily. Check A1c goal less than 7.5. Continue statin and CHRISTI inhibitor 08/15/2024 Essential (primary) hypertension (ICD-10 - I10) Blood pressure stable well-controlled no side effects. Check labs 9 salt diet follow-up in 6 months 02/29/2024 Type 2 diabetes mellitus without complications (ICD-10 - E11.9) Diet exercise weight management. Ophthalmology. Baby aspirin. Stat statin and CHRISTI inhibitor. Check A1c continue Farxiga and metformin. 02/29/2024 Essential (primary) hypertension (ICD-10 - I10) Optimal control blood pressure and getting 140/82. Therefore we will increase lisinopril to 20 mg daily along with lisinopril HCTZ follow-up blood pressure 2 weeks 02/29/2024 Disorder of lipoprotein metabolism, unspecified (ICD-10 - E78.9) Statin check lipid profile LDL goal less than 100. 08/15/2024 Disorder of lipoprotein metabolism, unspecified (ICD-10 - E78.9) Continue statin therapy check lipid profile LDL goal less than 100 total cholesterol less than 200 recommend Mediterranean low-fat diet 10/16/2024 Type 2 diabetes mellitus without complications (ICD-10 - E11.9) Continue with Januvia 100 mg daily, Farxiga 5 mg once a day, metformin ER 500 mg 2 tablets twice a day. Currently stable. Follow-up with Dr. Cowan as scheduled. 02/29/2024 Chronic fatigue, unspecified (ICD-10 - R53.82) 08/15/2024 Chronic fatigue, unspecified (ICD-10 - R53.82) Stable doing well review of systems physical exam unchanged check routine labs 10/16/2024 Age-related cataract of both eyes, unspecified age-related cataract type (ICD-10 - H25.9) Surgery as scheduled. Follow-up with ophthalmology as scheduled. 02/29/2024 History of prostate cancer (ICD-10 - Z85.46) Stable doing well follow-up urology 08/15/2024 History of prostate cancer (ICD-10 - Z85.46) Stable. Check PSA continue active surveillance follow-up urology no symptoms at the present time 02/29/2024 Mixed anxiety and depressive disorder (ICD-10 - F41.8) Well no change in therapy 08/15/2024 Mixed anxiety and depressive disorder (ICD-10 - F41.8) Stable doing well 02/29/2024 Bilateral primary osteoarthritis of knee (ICD-10 - M17.0) Stable. Use as needed Tylenol. Has good range of motion at present time symptoms are manageable. 08/15/2024 Transaminitis (ICD-10 - R74.01) Moderation follow-up LFTs check ceruloplasmin alpha-1 antitrypsin and hereditary hemochromatosis gene 02/29/2024 Infection of left eye (ICD-10 - H44.002) Will add topical erythromycin ophthalmic ointment. Only concern being possible viral infection especially with the duration of the symptoms etc. Therefore stat referral put into Dr. Paulino. Also told patient to call Dr. Paulino's office and see if they can see him this week PLAN OF TREATMENT Pending Test Test Name Order Date EKG 02/03/2023 Future Test Test Name Order Date Prostate-Specific Ag (PSA)-[id number] 2024 CBC, Platelet, w/o Differential-[id number] 02/25/2024 Lipid Panel-[id number] 02/25/2024 Hepatic Function Panel ([id number] 01/11/ 2025 BMP8+eGFR-[id number] 02/25/2024 Hemoglobin D7a-950820 02/29/2024 Albumin/Creatinine Ratio,Urine-271609 Iron and TIBC-239390 03/02/2024 GGT-[id number] 03/02/2024 Rpana-1-Rhhaqyihsju, Serum-285724 2024 Hepatitis B Surface Antigen - 350974 HCV Antibody-[id number] 03/02/2024 Iron and TIBC-502810 08/08/2024 Hemoglobin N0g-271650 08/08/2024 Ceruloplasmin-520272 08/08/2024 Osoaj-4-Tuwlirpxrfx, Serum-543954 2024 CBC, Platelet, w/o Differential-[id number] 0 08/08/2024 Lipid Panel-[id number] 08/08/2024 Hepatic Function Panel ([id number] 2024 Hered.Hemochromatosis, DNA-466121 2024 BMP8+eGFR-[id number] 08/08/2024 CBC W/ AUTOMATED DIFF 10/16/2024 BASIC METABOLIC PANEL 10/16/2024 Next Appt Details Provider Name:MANUEL MEHTA, 02/19/2025 03:00:00 PM, [address] [place], [address], Insurance Providers Payer Name Payer Address Payer Phone Subscriber Number Group Number Insured Name Patient Relationship to Insured Coverage Start Date Coverage End Date [facility] [address] [place] [address] [id number] MEET KANDI Self - patient is the insured 9 MEDICAL (GENERAL) HISTORY Medical History History ICD Code Hypertension Type 2 diabetes mellitus Anxiety and depression For lipidemia Prostate cancer. Active surveillance ro [facility] urologist Dr. Babb Osteoarthritis Vaccination status COVID 3 shots. Flu sh ot q. year. Tdap 2017. CT of the abdomen pelvis May 8 acute calculus cholecystitis fatty liver ventral wall hernia Severe osteoarthritis of the knees x-ray in the right April [address] Haro Chest x-ray September 2021 normal Ultrasound of the bladder September 2021 bl adder diverticula Pertinent lab data July 2022 CBC normal. Creatinine 0.65. Sugar 120. LFTs normal. Total cholesterol 197 triglyceride 150 HDL 98 LDL 69. PSA 0.6. TSH normal. UA microalbumin trace A1c 7.[address] Hollis April 2022 tub ular adenoma Stress echo 2018 normal Upper endoscopy June 2022 normal Cholecystectomy April [address] February [address] of cervical spine February [address] maxillofacial February 2023 bilateral nasal fractures and septal fracture Renal Dr. Jabier Boyce April 2023 proteinur ia [facility] urology May 2023 follow -up L4-L5 discectomy June [address]24 Dr[address] Evelyn Guaman [facility] urology June 15 025 follow-up active surveillance MRI done stable CT abdomen and pelvis May 2024 negativ e Surgical History Surgery Date(Month/Year) gallbladder
== END 2024-11-28 15:38 | disposition home or self-care (01) ==
LOC: HO.HMGAL 15:34
PROVIDERS: PCP Internal Medicine; Visit Provider Registered Nurse Emergency
DX: J30.89 Other allergic rhinitis (principal)
CPT/HCPCS: 95117; 95165

== ENCOUNTER 2024-12-24 15:26 | Outpatient (AMB) | payer OTHER, SELFPAY ==
--- OUTSIDE RECORDS SUMMARY | 2024-12-24 17:31 | XMS_ITS | Clinical Summary ---
Author Organization LL [address] [place] [address] [place] [phone] Phone Care Team Providers Care Food Cart Attendant Name Role Phone Getachew Sequeira MD Primary Care Provider + [phone] Allergies No known active allergies Medications PARoxetine [...] left knee. He is not requiring any rplo-vkd-dioyniz pain meds or oxycodone. He denies any [...] Encounters Date Type Department Care Team Description 12/13/2024 3:00 PM EDT Lab Draw Station - [address] [facility] 299 [facility] [place] [phone] Prostate cancer ([facility] V24, [facility] V28); Malignant neoplasm of prostate ([facility] V24, [facility] V28) 10/31/2024 2:00 PM EDT Office Visit Neurosurgery [place] [address] [facility] [address] [place] [phone] Abdifatah May PA Radiculopathy, lumbar region (Primary Dx) 10/02/2024 2:45 PM EDT Office Visit Orthopedic Surgery - [place] [address] [facility] [address] [place] [phone] Kisha Romo MD Surgery follow-up (Primary Dx); Dupuytren's contracture of hand from Last 3 Months Immunizations Immunization Administration Dates Next Due Hepatitis B (Gaqhmqx-S-Eblss , Recombivax HB-Adult) 19yo and older 10/09/2013,05/08/2013,04/10/2013 [...] RESUME YARDWORK Medical Devices Implanted Type Area Kohinoor Operator Device Identifier Shelf Expiration Date Model / Serial / Lot Joints Knee Joints Knee Right: Knee Powder Surgifoam Absorb Gel - Sna - [id number] Implanted:Qty : 1 on 06/21/2024 by Kendra Limon MD at [facility] [employer] Left: Back [employer] 03/29/20261977 / NA / [id number] Mesh Ventralex St 1.7in Sm Wales W/Strap - Sna - [id number] Implanted:Qty : 1 on 06/08/2024 by Galina Isbell MD at [facility] Surgical Mesh Sling Implants N/A: Umbilical CR BARD - DAVOL DIV [id number] 10/11/2025 [id number] / NA / [id number] Procedures Procedure Name Priority Date/Time Associated Diagnosis Comments PROSTATE SPECIFIC ANTIGEN DIAGNOSTIC Routine 12/13/2024 3:04 PM EDT Malignant neoplasm of prostate (CMS/HCC V24, CMS/HCC V28) PSA TOTAL, FREE AND COMPLEXED, DIAGNOSTIC Routine 12/13/2024 3:04 PM EDT Prostate cancer (CMS/HCC V24, CMS/HCC V28) CBC WITH AUTO DIFFERENTIAL Routine 10/16/2024 3:28 [...] of transaminase or lactic acid dehydrogenase (LDH) [id number] Routine 10/03/2024 7 :41 AM EDT Essential [...] from Last 3 Months Results * (ABNORMAL) PSA total, free and complexed (12/13/2024 3:04 PM EDT) PSA 0.54 0.00 - 4.00 ng/mL LAB CHEMISTRY METHOD 12/13/2024 4:30 PM EDT [facility] PSA, Complexed 0.40 0.00 - 3.00 ng/mL LAB CHEMISTRY METHOD 12/13/2024 4:30 PM [facility] PSA, Free 0.1 ng/mL LAB CHEMISTRY METHOD 12/13/2024 4:30 PM [facility] PSA, Free Pct 18.5(L) >25.0 % LAB CHEMISTRY METHOD 12/13/2024 4:30 PM [facility] Blood Venous blood specimen / Unknown Venipuncture / Unknown 12/13/2024 3:04 PM EDT 12/13/2024 3:24 PM EDT [facility] - 12/13/2024 4:30 PM EDT Free PSA is a calculated value. The diagnostic usefulness of % free PSA has not been established in patients with Total PSA below 2.6 or above 10 ng/mL. This test was performed using the Centaur Chemiluminescent method. PSA values obtained with other methods cannot be used interchangeably. us Hay Pineda MD LAB BLOOD ORDERABLES Final Res ult Performing Organization Address [facility] de Phone Number [facility] [address] [place] [address], * Prostate specific antigen diagnostic (12/13/2024 3:04 PM EDT) PSA 0.54 0.00 - 4.00 ng/mL LAB CHEMISTRY METHOD 12/13/2024 4:30 PM EDT [facility] Blood Venous blood specimen / Unknown Venipuncture / Unknown 12/13/2024 3:04 PM EDT 12/13/2024 3:24 PM EDT Narrative [facility] - 12/13/2024 4:30 PM EDT The Siemens Advia Centaur Chemiluminescent Immunoassay is used. Results obtained with different assay methods or kits cannot be used interchangeably. Results cannot be interpreted as absolute evidence of the presence or absence of malignant disease. us Hay Pineda MD LAB BLOOD ORDERABLES Final Res ult Performing Organization Address [facility] Phone Number [facility] [address] [place] [address], * (ABNORMAL) CBC auto differential (10/16/2024 3:28 PM EDT) Only the most recent of2 resultswithin the time period is included. WBC 8.4 4.8 - 10.8 K/[facility] LAB HEMETOLOGY METHOD 10/16/2024 5:06 PM EDT [facility] RBC 4.80 4.50 - 5.50 M/mcL LAB HEMETOLOGY METHOD 10/16/2024 5:06 PM EDT [facility] Hemoglobin 14.7 13.5 - 17.5 g/dL LAB HEMETOLOGY METHOD 10/16/2024 5:06 PM [facility] Hematocrit 44.0 42.0 - 54.0 % LAB HEMETOLOGY METHOD 10/16/2024 5:06 PM [facility] MCV 90.9 79.0 - 98.0 FL LAB HEMETOLOGY METHOD 10/16/2024 5:06 PM [facility] MCH 30.4 27.0 - 32.0 pcg LAB HEMETOLOGY METHOD 10/16/2024 5:06 PM [facility] MCHC 33.4 32.0 - 37.0 g/dL LAB HEMETOLOGY METHOD 10/16/2024 5:06 PM [facility] RDW 13.2 11.0 - 15.0 % LAB HEMETOLOGY METHOD 10/16/2024 5:06 PM [facility] Platelets 312 130 - 400 K/mcL LAB HEMETOLOGY METHOD 10/16/2024 5:06 PM [facility] MPV 9.2 7.0 - 11.0 FL LAB HEMETOLOGY METHOD 10/16/2024 5:06 PM [facility] NRBC 0.0 <1.0 % LAB HEMETOLOGY METHOD 10/16/2024 5:06 PM [facility] NRBC Absolute 0.00 <0.10 K/mcL LAB HEMETOLOGY METHOD 10/16/2024 5:06 PM [facility] Neutrophils Relative 54.9 % LAB HEMETOLOGY METHOD 10/16/2024 5:06 PM [facility] Lymphocytes Relative 26.5 % LAB HEMETOLOGY METHOD 10/16/2024 5:06 PM [facility] Monocytes Relative 13.0 % LAB HEMETOLOGY METHOD 10/16/2024 5:06 PM EDT [facility] Eosinophils Relative 4.6 % LAB HEMETOLOGY METHOD 10/16/2024 5:06 PM EDT [facility] Basophils Relative 0.6 % LAB HEMETOLOGY METHOD 10/16/2024 5:06 PM EDT [facility] Immature Granulocytes Relative 0.4 % LAB HEMETOLOGY METHOD 10/16/2024 5:06 PM EDT [facility] Neutrophils Absolute 4.61 1.50 - 7.00 K/mcL LAB HEMETOLOGY METHOD 10/16/2024 5:06 PM EDT [facility] Lymphocytes Absolute 2.22 1.00 - 5.00 K/mcL LAB HEMETOLOGY METHOD 10/16/2024 5:[facility] Monocytes Absolute 1.09(H) 0.20 - 1.00 K/mcL LAB HEMETOLOGY METHOD 10/16/2024 5:06 PM EDT [facility] Eosinophils Absolute 0.39 0.00 - 0.50 K/mcL LAB HEMETOLOGY METHOD 10/16/2024 5:06 PM EDT [facility] Basophils Absolute 0.05 0.00 - 0.20 K/mcL LAB HEMETOLOGY METHOD 10/16/2024 5:06 PM EDT [facility] Immature Granulocytes Absolute 0.03 0.00 - 0.03 K/mcL LAB HEMETOLOGY METHOD 10/16/2024 5:06 PM EDT [facility] Blood Venous blood specimen / Unknown Venipuncture / Unknown 10/16/2024 3:28 PM EDT 10/16/2024 4:24 PM EDT us Tom ROBINS LAB BLOOD ORDERABLES Final Res ult [facility] [address] [place] [address], [place] [phone] * (ABNORMAL) Hemoglobin A1c (10/16/2024 3:28 PM EDT) Only the most recent of2 resultswithin the time period is included. [facility] Hemoglobin A1C 7.7(H) <6.5 % LAB CHEMISTRY METHOD 10/16/2024 10:21 PM EDT [facility] Mean Bld Glu Estim. 174 mg/dL LAB CHEMISTRY METHOD 10/16/2024 10:21 PM EDT [facility] Blood Venous blood specimen / Unknown Venipuncture / Unknown 10/16/2024 3:28 PM EDT 10/16/2024 4:24 PM EDT us Tom ROBINS LAB BLOOD ORDERABLES Final Res ult [facility] [address] [place] [address], * (ABNORMAL) Basic metabolic panel (10/16/2024 3:28 PM EDT) Only the most recent of2 resultswithin the time period is included. [facility] Sodium 137 133 - 145 mmol/L LAB CHEMISTRY METHOD 10/16/2024 8:07 PM [facility] Potassium 3.9 3.5 - 5.5 mmol/L LAB CHEMISTRY METHOD 10/16/2024 8:07 PM [facility] Chloride 99 96 - 110 mmol/L LAB CHEMISTRY METHOD 10/16/2024 8:07 PM [facility] CO2 30 21 - 32 mmol/L LAB CHEMISTRY METHOD 10/16/2024 8:07 PM [facility] Anion Gap 8 3 - 11 LAB CHEMISTRY METHOD 10/16/2024 8:07 PM [facility] Glucose 138(H) 70 - 100 mg/dL LAB CHEMISTRY METHOD 10/16/2024 8:07 PM [facility] BUN 20 5 - 25 mg/dL LAB CHEMISTRY METHOD 10/16/2024 8:07 PM EDT [facility] Creatinine 0.96 0.70 - 1.30 mg/dL LAB CHEMISTRY METHOD 10/16/2024 8:07 PM EDT [facility] eGFR 88 >=60 mL/min/1. 73m2 LAB CHEMISTRY METHOD 10/16/2024 8:07 PM EDT [facility] Comment:Calculation based on the Chronic Kidney Disease Epidemiology Collaboration (CKD-EPI) equation refit without adjustment for race. BUN/Creatinine Ratio 20.8 LAB CHEMISTRY METHOD 10/16/2024 8:07 PM EDT [facility] Calcium 10.5 8.5 - 10.5 mg/dL LAB CHEMISTRY METHOD 10/16/2024 8:07 PM EDT [facility] Blood Venous blood specimen / Unknown Venipuncture / Unknown 10/16/2024 3:28 PM EDT 10/16/2024 4:24 PM EDT us Tom ROBINS LAB BLOOD ORDERABLES Final Res ult [facility] [address] [place] [address], * Lipid panel with reflex to direct LDL (10/03/2024 7:41 AM EDT) Cholesterol 166 0 - 200 mg/dL LAB CHEMISTRY METHOD 10/03/2024 8:58 AM EDT [facility] Triglycerides 81 0 - 150 mg/dL LAB CHEMISTRY METHOD 10/03/2024 8:58 AM EDT [facility] HDL 98 >=40 mg/dL LAB CHEMISTRY METHOD 10/03/2024 8:58 AM EDT [facility] LDL Calculated 52 0 - 100 mg/dL LAB CHEMISTRY METHOD 10/03/2024 8:58 AM EDT [facility] Comment:Estimated LDL Calcul ated using equation: Total cholesterol - HDL cholesterol - (Triglycerides/5) VLDL Cholesterol Fel[place] 16.2 mg/dL LAB CHEMISTRY METHOD 10/03/2024 8:58 AM EDT [facility] Non HDL Chol. (LDL+VLDL) 68 <145 mg/dL LAB CHEMISTRY METHOD 10/03/2024 8:58 AM EDT [facility] Chol/HDL Ratio 1.7 0.0 - 4.4 LAB CHEMISTRY METHOD 10/03/2024 8:58 AM EDT [facility] Blood Venous blood specimen / Unknown Venipuncture / Unknown 10/03/2024 7:41 AM EDT 10/03/2024 8:20 AM EDT us Getachew Sequeira MD LAB BLOOD ORDERABLES Final R esult [facility] [address] [place] [address], * Hemochromatosis mutation (10/03/2024 7:41 AM EDT) Hereditary Hemochromatosis See Below 10/19/2024 10:41 PM [...] clinical information reviewed by Janis Kirby, PhD, [facility]. DETAILED ASSAY INFORMATION: Hereditary hemochromatosis (HH) is [...] variants in the HFE gene, C282Y (NM [id number]: c.845G>A, p.[id number]) and H63D (NM 226397.2: c.187C>G, p.[id number]), that are commonly associated with HH. These [...] Health care providers, please contact your local [facility] genetic counselor or call [phone] for assistance with the interpretation of these results. This test was developed and its analytical performance characteristics have been determined by [facility]. It has not been cleared or approved by FDA. This assay has been validated pursuant to the CLIA regulations and is used for clinical purposes. For more information, please refer to http://education.[employer].Network Intelligence/faq/hemochromatosis. (This link is being provided for informational/educational purposes only.) A portion of the testing was performed at [facility]. Reviewed and signed by Laboratory results and submitted clinical information reviewed by Janis Kirby, PhD, [facility], Signed on 10/19/2024 at 16:50 Test Performed at: [facility] [address] [place] [address] Keanu Michael MD, PhD, [facility] Blood Venous blood specimen / Unknown Venipuncture / Unknown 10/03/2024 7:41 AM EDT 10/03/2024 8:20 AM EDT us Getachew Sequeira MD LAB MOLECULAR DIAGNOSTICS OR DERABLES Final [place] [address] * Iron and TIBC (10/03/2024 7:41 AM EDT) Iron 85 50 - 160 mcg/dL LAB CHEMISTRY METHOD 10/03/2024 8:59 AM EDT [facility] TIBC 368 250 - 450 mcg/dL LAB CHEMISTRY METHOD 10/03/2024 8:59 AM EDT [facility] Iron Saturation 23 20 - 50 % LAB CHEMISTRY METHOD 10/03/2024 8:59 AM EDT [facility] Blood Venous blood specimen / Unknown Venipuncture / Unknown 10/03/2024 7:41 AM EDT 10/03/2024 8:20 AM EDT us Getachew Sequeira MD LAB BLOOD ORDERABLES Final R esult Performing Organization Address [facility]/ZIP Co de Phone Number [facility] [address] [place] [address], [place] [phone] * [id number] (10/03/2024 7:41 AM EDT) A-1 Antitrypsin 128 90 - 200 mg/dL LAB CHEMISTRY METHOD 10/03/2024 8:57 AM EDT [facility] Blood Venous blood specimen / Unknown Venipuncture / Unknown 10/03/2024 7:41 AM EDT 10/03/2024 8:20 AM EDT us Getachew Sequeira MD LAB BLOOD ORDERABLES Final R esult [facility] [address] [place] [address], [place] [phone] * Ceruloplasmin (10/03/2024 7:41 AM EDT) Pathologist [facility] Ceruloplasmin 31 20 - 60 mg/dL 10/05/2024 5:46 AM EDT [facility] Comment: Test performed at [facility], [address], [place] [address] Lesly Perez MD, PhD - [employer] Blood Venous blood specimen / Unknown Venipuncture / Unknown 10/03/2024 7:41 AM EDT 10/03/2024 8:20 AM EDT us Getachew Sequeira MD LAB BLOOD ORDERABLES Final R esult [facility] [address] [place] [address] * (ABNORMAL) Hepatic function panel (10/03/2024 7:41 AM EDT) Pathologist [facility] Total Protein 6.8 6.0 - 8.0 g/dL LAB CHEMISTRY METHOD 10/03/2024 8:59 AM EDT [facility] Albumin 4.1 3.2 - 5.0 g/dL LAB CHEMISTRY METHOD 10/03/2024 8:59 AM EDT [facility] Total Bilirubin 0.9 0.0 - 1.4 mg/dL LAB CHEMISTRY METHOD 10/03/2024 8:59 AM EDT [facility] Bilirubin, Direct 0.3 0.0 - 0.3 mg/dL LAB CHEMISTRY METHOD 10/03/2024 8:59 AM EDT [facility] Bilirubin, Indirect 0.6 0.0 - 1.1 mg/dL LAB CHEMISTRY METHOD 10/03/2024 8:59 AM EDT [facility] ALT (SGPT) 84(H) 10 - 60 unit/L LAB CHEMISTRY METHOD 10/03/2024 8:59 AM EDT [facility] AST (SGOT) 50(H) 10 - 42 unit/L LAB CHEMISTRY METHOD 10/03/2024 8:59 AM EDT [facility] Alkaline Phosphatase 71 42 - 121 unit/L LAB CHEMISTRY METHOD 10/03/2024 8:59 AM EDT [facility] Blood Venous blood specimen / Unknown Venipuncture / Unknown 10/03/2024 7:41 AM EDT 10/03/2024 8:20 AM EDT Getachew Sequeira MD LAB BLOOD ORDERABLES Final R esult [facility]) [facility] [address] [place] [address], from Last 3 Months Insurance [employer] [...] currently active code status orders. Care Teams Food Cart Attendant Relationship Specialty Start Date End Date Getachew Sequeira MD [address] [place] [phone] PCP - General Internal Medicine 04/24/24
== END 2024-12-24 15:27 | disposition home or self-care (01) ==
LOC: HO.HMGAL 15:26
PROVIDERS: PCP Internal Medicine; Visit Provider Registered Nurse Emergency
DX: J30.89 Other allergic rhinitis (principal)
CPT/HCPCS: 95117; 95165